=== PATIENT | female | born 1985 | race Two or more races ===

== ENCOUNTER 2024-03-11 07:55 | Day surgery (SDC) | payer MEDICAID, SELFPAY ==
--- NOTE | 2024-03-07 10:49 | ESHP_ITS ---
RE: FERMIN KELSEY : 1985 DATE OF ADMISSION: 03/11/2024 HISTORY OF PRESENT ILLNESS: This is a 38-year-old 8, para 5-0-3-5, who is multiparous and desires voluntary sterilization. She currently has an IUD in place. She also has a history of abnormal uterine bleeding, which is a significant quality of life issue for her. Prior to IUD insertion, she also had abnormal uterine bleeding. It is the expectation when the IUD is removed that this problem will continue. Therefore, the patient is undergoing laparoscopic bilateral salpingectomy and hysteroscopy with removal of IUD and NovaSure endometrial ablation. ALLERGIES: NO KNOWN DRUG ALLERGIES. MEDICATIONS: 1. Wegovy 2.4 mg subcutaneous injection weekly. 2. Mirena IUD currently in place. PAST MEDICAL HISTORY: Migraine headache with aura, mild COVID-19 infection. FAMILY HISTORY: Father and mother have diabetes, hypertension, heart disease, and hypothyroidism. Son with Down syndrome, congenital heart disease. OBSTETRIC HISTORY: Four previous full-term, normal vaginal deliveries and three previous spontaneous abortions. PAST SURGICAL HISTORY: D and C in 2008 and 2018. REVIEW OF SYSTEMS: She denies any chest pain, palpitations, cough, fever, shortness of breath, or lower extremity pain. PHYSICAL EXAMINATION: VITAL SIGNS: Blood pressure is 116/72, heart rate 88, respirations 18, temperature 98.6. HEENT: Oropharynx and sclerae are clear. LUNGS: Clear to auscultation bilaterally. HEART: Regular rate and rhythm. ABDOMEN: Nontender. No scars noted. EXTREMITIES: Nontender. SKIN: No gross rashes or lesions. NEUROLOGIC: No focal deficits. ASSESSMENT AND PLAN: Multiparity, desires voluntary sterilization, abnormal uterine bleeding, desires IUD removal. PLAN: Laparoscopic bilateral salpingectomy, hysteroscopy, removal of IUD, fractional dilatation and curettage, NovaSure endometrial ablation. Informed consent was obtained. The patient is made aware of the risks, complications, alternatives, and benefits of the proposed procedure and she agrees. She is aware of the failure rate and increased risk of tubal ectopic gestation if occurs. She is aware that vasectomy is simpler, easier and safer, but her male partner declines that option. She is aware of the reversible methods of control and she declines those options. She is aware of the risk of injury to bowel or bladder, uterus, ureters, adjacent organs, pulmonary embolism, deep vein thrombosis, injury to the vessels of the abdominal wall, hematoma, abscess, wound infection, wound dehiscence, pelvic infection, reoperation, repair of injury to internal organs, anesthesia complications, the possibility that a laparotomy needs to be performed to complete the procedure or controlled bleeding and the possibility the procedure is not able to be completed due to severe adhesions or technical difficulties. DT: 09:26:14 TT: 10:48:00 Ref: [id number] - TID: [id number] MTDD
[2024-03-10 11:23] VITALS: BMI 25.7
[2024-03-10 12:28] LABS: Basophils # (Auto) 0.1 Thou/mm3 (0.0-0.2); Basophils % (Auto) 1 % (0-2.5); Eosinophils # (Auto) 0.2 Thou/mm3 (0.0-0.5); Eosinophils % (Auto) 4 % (0-10); Hematocrit 39.2 % (36.0-46.0); Hemoglobin 13.2 g/dL (12.0-16.0); Immature Granulocytes % (Auto) 0 % (0-0); Immature Granulocytes Auto 0.01 Thou/mm3 (0.00-0.00); Lymphocytes # (Auto) 2.4 Thou/mm3 (1.0-4.8); Lymphocytes % (Auto) 43 % (10-50); Mean Corpuscular HGB Conc 33.7 g/dl (31.0-37.0); Mean Corpuscular Volume 89 fL (80-100); Monocytes # (Auto) 0.4 Thou/mm3 (0.0-0.8); Monocytes % (Auto) 7 % (0-12); Neutrophils # (Auto) 2.5 Thou/mm3 (1.8-7.7); Neutrophils % (Auto) 46 % (37-80); Nucleated Red Blood Cell % 0 /100 WBC (0); Platelet Count 207 Thou/mm3 (140-440); RDW Standard Deviation 42.5 fL (36.4-46.3); White Blood Count 5.5 Thou/mm3 (3.6-11.0)
[2024-03-10 12:49] LABS: Partial Thromboplastin Time 28.4 Seconds (22.0-36.0); Prothrombin Time 11.4 Seconds (9.0-12.2)
[2024-03-10 13:05] LABS: Alanine Aminotransferase 7 U/L (10-49); Albumin, Serum 4.5 gm/dL (3.5-5.0); Albumin/Globulin Ratio 1.7 (1.2-2.2); Alkaline Phosphatase 28 U/L (46-116); Anion Gap 6 (7-16); Aspartate Amino Transferase < 10 U/L (0-34); BUN/Creatinine Ratio 17 Ratio (12-20); Beta HCG,Quantitative 2 mIU/mL (<5.0); Bilirubin,Total 0.5 mg/dL (0.3-1.2); Blood Urea Nitrogen 10 mg/dL (9-23); Calcium 9.7 mg/dL (8.3-10.6); Calcium (Corrected) 9.7 mg/dL (8.5-10.1); Carbon Dioxide 28.5 mMol/L (20.0-31.0); Chloride 105 mMol/L (98-107); Creatinine (Component) 0.6 mg/dL (0.6-1.3); Estimated Creatinine Clearance 109.5 mL/min (>60); Globulin 2.7 gm/dL (2.3-3.5); Glucose 77 mg/dL (74-106); Osmolality,Calculated 275 (275-295); Potassium 3.4 mMol/L (3.4-5.1); Sodium 139 mMol/L (136-145); Total Protein 7.2 gm/dL (5.7-8.2); eGFR > 60 See Note
[2024-03-11] VITALS (12 sets, daily range): BP systolic 103–121; BP diastolic 64–81; PULSE 56–82; RESP 13–17; TEMP 36.1–36.7; O2SAT 97–100; BMI 26.1
[2024-03-11] MEDS: RINGERS LACTATED 1000 ML 1,000 ML 30 ML IV (08:51)
--- NOTE | 2024-03-11 12:24 | SUR.PHASEII ---
report to Wanda Zhao RN
--- NOTE | 2024-03-11 12:24 | SUR.PHASEII ---
1224 Report received from Wanda Hernandez RN
[2024-03-11] MEDS: KETOROLAC INJ 30 MG/ML VIAL IVP (12:53)
--- NOTE | 2024-03-11 13:32 | SUR.PHASEII ---
1332 Patient meets discharge criteria from recovery, awake and alert, breathing unlabored, vital signs stable, denies pain, dressing intact; no bleeding noted, patient able to dress herself into her clothing, denies nausea, discharge instructions given to patient and patients son, son signed discharge instructions. Patient given all her belongings prior to discharge, transported via wheelchair and left in a private vehicle.
--- NOTE | 2024-03-11 19:44 | ESOP_ITS ---
RE: FERMIN KELSEY : 1985 DATE OF OPERATION: 03/11/2024 PREOPERATIVE DIAGNOSES: 1. Multiparity. 2. Desires voluntary sterilization. 3. Abnormal uterine bleeding. 4. Desires removal of IUD. POSTOPERATIVE DIAGNOSES: 1. Multiparity. 2. Desires voluntary sterilization. 3. Abnormal uterine bleeding. 4. Desires removal of IUD. PROCEDURE PERFORMED: Laparoscopic bilateral salpingectomy, hysteroscopy, IUD removal, fractional dilatation and curettage, and NovaSure endometrial ablation. SURGEON: Albin Tirado DO COST MANAGER: KERRY Almeida ANESTHESIA: General. ANESTHESIOLOGIST: Dr. Souza ESTIMATED BLOOD LOSS: 10 mL. COMPLICATIONS: None. COUNTS: Correct. PATHOLOGY: 1. IUD. 2. Left fallopian tube. 3. Right fallopian tube. 4. Endocervical curettings. 5. Endometrial curettings. FINDINGS: Uterus sounds to 9.0 cm. Cervical length is 3.0 cm. Uterine cavity length is 6.0 cm. Uterine cavity width is 2.6 cm. Power setting is 86 rosario. Duration of ablation 1 minute and 11 seconds. Fluids absorbed hysteroscopically 425 mL of normal saline. Impression is grossly normal-appearing uterus, fallopian tubes, and ovaries. Grossly normal-appearing IUD removed, complete and intact. DESCRIPTION OF PROCEDURE: After proper informed consent was obtained and the patient was made aware of the risks, complications, alternatives, benefits of the proposed procedure, she was taken to the operating room where she underwent induction of general anesthesia. She was placed in the dorsal lithotomy position. She was prepped and draped in the usual sterile fashion. A timeout was performed. The speculum was placed in the vagina. A single-tooth tenaculum was used to grasp the anterior lip of the cervix. The IUD string was grasped with the forceps and removed. The IUD was removed completely and intact and sent to Pathology. The [employer] unit manipulator was placed. Attention was then turned to the abdomen where the physician regowned and gloved and a 5-mm incision was made in the umbilical fold with tenting up of the abdomen. The Veress needle was inserted. Saline confirmed intraabdominal placement. An artificial pneumoperitoneum was created to 12 mmHg. The Veress needle was then removed. The 5-mm trocar was inserted with tenting up of the abdomen. The laparoscope connected to video camera was then utilized to visualize the pelvis. A second incision was made in the midline 2 cm above the symphysis pubis. Through this 5-mm incision, a 5 mm trocar was inserted under direct visualization of the laparoscope. Attention was then turned to the left lower quadrant. Through this left lower quadrant incision, a 5-mm trocar was inserted under direct visualization of the laparoscope and using the [employer] grasper, the right fallopian tube was grasped in the fimbriated end and using the [employer] Harmonic scalpel 1136 griselda, the right salpingectomy was performed. Hemostasis was achieved. Specimen sent to Pathology. Attention was then turned to the left fallopian tube, which was grasped with a fimbriated end. A left salpingectomy was performed using the 1136 Harmonic scalpel. Hemostasis was achieved. Specimen sent to Pathology. Carbon dioxide was removed from the peritoneal cavity. The incisions were infiltrated with Marcaine 0.5% with epinephrine and closed with 4-0 Monocryl and covered with Dermabond. Attention was then turned to the vagina where the acorn uterus manipulator was then removed. The uterus sounded to 9.0 cm. The cervical length measured 3.0 cm. The Omni hysteroscope was then utilized to visualize the endocervix and uterine cavity and through the 5.5 mm hysteroscope, the above findings were noted. The endocervix was curetted and specimen sent to Pathology. The uterine cavity was curetted and specimen sent to Pathology. Using the MyoSure reach, the uterine cavity was sampled in all four quadrants and specimen sent to Pathology. Using the NovaSure catheter, the NovaSure endometrial ablation was performed for a total of 1 minute and 11 seconds at 86 rosario and when the catheter was removed from the uterine cavity and redeployed, it was found to be complete and intact. There was no bleeding from the endocervix at the end of the procedure. All instruments were removed from the vagina. She was reversed from general anesthesia in the supine position and transferred to the recovery room in stable condition. She tolerated the procedure well. Counts were correct. I discussed with the patient's family the nature of her condition, intraoperative findings and expectations for recovery. All questions answered. DT: 12:05:11 TT: 19:41:00 Ref: [id number] - TID: [id number]
== END 2024-03-11 13:32 | disposition home or self-care (01) ==
PROVIDERS: PCP Nurse Practitioner Family; Referring Provider Specialist; Visit Provider Specialist
PROC: (CPT 58670; principal; 2024-03-11 10:00)
PROC: 0U5B8ZZ Destruction of Endometrium, Via Natural or Artificial Opening Endoscopic (ICD-10-PCS; CPT 58563; 2024-03-11 10:00)
PROC: (CPT 58301; 2024-03-11 10:00)
DX: Z30.2 Encounter for sterilization (principal); Z64.1 Problems related to multiparity; Z82.49 Family history of ischemic heart disease and other diseases of the circulatory system; Z83.3 Family history of diabetes mellitus; Z83.49 Family history of other endocrine, nutritional and metabolic diseases; Z86.16 Personal history of COVID-19
CPT/HCPCS: 58301; 58563; 58661; 36415; 80053; 84702; 85025; 85610; 85730; 86850; 86900; 86901; A4217; A4649; J0131; J0690; J1100; J1885; J2405; J2704; J3010; J3490; J7120

== ENCOUNTER 2024-06-09 13:44 | Outpatient (AMB) | payer MEDICAID, SELFPAY ==
[2024-06-09 13:58] VITALS: BP 89/60; PULSE 73; RESP 18; TEMP 36.9; O2SAT 97; BMI 24.3
--- NOTE | 2024-06-09 13:58 | GSCOFFNT_ITS ---
Vital Signs - [facility] 06/09/24 13:58 Height 1.57 m Height Method Stated Weight 60.384 kg Weight Measurement Method Standing Scale BMI 24.3 BP 89/60 L Blood Pressure Source Automatic Cuff Blood Pressure Location Left Upper Arm Position Sitting Respiration 18 Pulse 73 Pulse Source Monitor Temp 98.4 F Temp Source Temporal Artery Scan Pulse Oximetry (%) 97 Oxygen Delivery Method Room Air Med/Allergies Allergies & Medications Allergies No Known Allergies Allergy (Verified 06/09/24 13:59) Medication Reconciliation semaglutide (weight loss) 2.4 mg/0.75 mL subcutaneous pen injector (Wegovy) 2.4 mg subcut QWEEK 03/10/24 [History Confirmed 06/09/24] tenapanor 50 mg tablet (Ibsrela) 50 mg PO DAILY 03/10/24 [History Confirmed 06/09/24] MA Intake Visit Data Collection New Patient or Established: Established Patient (seen at [facility] within 3 years) Seen by Clinical Staff ONLY (RN/MA): No Reason for Visit:: REFERRAL HEMORRHOIDS Pain Present Currently: No PCP or OBGYN visit in last 3 months: Yes Hx Now: No Do You Feel Safe at Home: Yes Authorities Contacted: N/A Smoking Status Smoking Status: Never smoker Immunization / Flu Flu Vaccine in the Last 12 Months: No Flu Vaccine Exclusion Criteria: Refused by Patient Past Medical History Past Medical History NEUROLOGIC: Negative Neurological Disorders, Seizures or Migraine CARDIAC: Negative Cardiac Disorders or Congestive Heart Failure RESPIRATORY: Negative Chronic Obstructive Pulmonary Disease (COPD) GASTROINTESTINAL: Negative Gastrointestinal Disorders GENITOURINARY: Negative Genitourinary Disorders or Renal Disease REPRODUCTIVE: Positive Previous Pregnancies ENDOCRINE: Negative Endocrine Disorders, Diabetes Mellitus Type 1, Diabetes Mellitus Type 2, Hypoglycemia, Hyperthyroidism, Hypothyroidism, Parathyroid Disease, Pituitary Disease or Syndrome of Inappropriate Antidiuretic Hormone (SIADH) HEMATOLOGIC: Negative Blood Disorders OTHER HISTORY: Positive Hospitalization (surgery); Negative Autoimmune Disease, Shingles, Blood Transfusions, Blood Transfusion Reaction, Anesthesia Reactions, Organ Transplant, Chicken Pox, Clostridium Difficile or Cancer Family History FAMILY HISTORY: Positive Family Cardiac Disorders (Father side - unknown heart disease runs in the family), Family Cancer and Family Surgery; Negative Family Psychiatric Problems, Family Respiratory Disorders, Family Gastrointestinal Problems or Family Anesthesia Reaction Surgical History SURGICAL: Negative Thyroidectomy or Organ Transplant Social History SMOKING STATUS: Smoking status: Never smoker ALCOHOL: Alcohol Intake: Never HOUSING: Housing: House LIVES WITH: Lives With: Children and Spouse HPI HPI Narrative 38 year old female presenting for evaluation of hemorrhoid. She states that she first noticed it approximately 2 months ago. She reports symptoms of irritation and itching associated with the hemorrhoid. Denies pain with bowel movement. She reports bright red blood when wiping with toilet paper. She notes that the hemorrhoid prolapses with bowel movements and straining associated with bowel movements, but resolves spontaneously within a few days. She states that she has been dealing with constipation for as long as she can remember. She previously would have bowel movements every 1-1.5 months but has recently noticed improvement with bowel movements occurring approximately every 2 weeks since starting Ibsrela and Lactulose. She had a colonoscopy approximately 2 years ago but was told that there were no abnormal findings. PMH: IBS-Constipation PSH: Cholecystectomy Meds: Ibsrela, Wegovy, Lactulose, Minoxidil, Spironolactone Allergies: NKDA SHx: Denies smoking FHx: Denies history of cancer in parents, siblings, or children. Reports cancer in extended family members such as uncle and nephew but is unsure what kind of cancer ROS Review of Systems Systems Reviewed: All systems reviewed, normal except as documented Objective/Exam General General Appearance: alert, in no apparent distress, comfortable, cooperative and healthy appearing Resp Respiratory exam: Absent respiratory distress Assessment & Plan Diagnosis / Problem List (1) Internal hemorrhoid: Status: Acute Assessment & Plan: 38 year old female presenting for evaluation of internal hemorrhoid associated with irritation, pruritus, and bright red blood when wiping. She has a history of IBS-C being treated with Ibsrela and Lactulose. She has also been given hydrocortisone suppositories. Discussed importance of adequate hydration and fiber supplementation. I explained that because she is still dealing with constipation I would not recommend surgery at this time. Recommended sitz bath. Patient understand and agrees with plan to increase hydration and begin fiber supplementation. Patient to return to clinic in 6 weeks for follow up. Office Procedures GNS Level of Care Nursing/Assessment Patient Status: Established Patient Nursing Assessment/Reassesment: Medication Reconciliation, Update PMH in EMR and Vital Signs Coordination of Care: Complex Care and Chronic Disease 1-5, Consent,records obtained, informed consent, Education Simp Pt/Fam, Results/Orders obtained and Staff clarify orders Established Patient Charge Established Patient Point Assignment: 90 Established Patient Point Charge: Level 3 (80-115) Patient Portal Questionaires Social History Living Situation History Housing: House Tobacco History Smoking Status: Never smoker Alcohol History Alcohol Intake: Never Domestic Abuse History Do You Feel Safe at Home: Yes Review of Systems Report any current symptoms Only answer those that you have currently: Past Medical History Past Medical History Have you ever been diagnosed with any of the following: Neurological Problems Seizures: No Migraine: No Cardiology Problems Congestive Heart Failure: No Respiratory Problems Chronic Obstructive Pulmonary Disease (COPD): No Genital/Urinary Problems Renal Disease: No Reproductive Problems Previous Pregnancies: Yes Endocrine Problems Diabetes Mellitus Type 1: No Diabetes Mellitus Type 2: No Hypoglycemia: No Hyperthyroidism: No Hypothyroidism: No Parathyroid Disease: No Pituitary Disease: No Syndrome of Inappropriate Antidiuretic Hormone: No Other Problems Hospitalization: Yes (surgery) Autoimmune Disease: No Shingles: No Blood Transfusions: No Blood Transfusion Reaction: No Anesthesia Reactions: No Organ Transplant: No Chicken Pox: No Clostridium Difficile: No Cancer: No Surgical History Thyroidectomy: No
== END 2024-06-09 14:46 | disposition home or self-care (01) ==
LOC: HODSRG 13:44
PROVIDERS: PCP Nurse Practitioner Family; Referring Provider Nurse Practitioner Family; Supervising Provider Surgery; Visit Provider Surgery
DX: K64.8 Other hemorrhoids (principal)
CPT/HCPCS: 99213; G0463

== ENCOUNTER 2024-10-08 17:34 | Emergency (ER) | payer MEDICAID, SELFPAY ==
[2024-10-08 18:09] VITALS: BP 104/62; PULSE 75; RESP 16; TEMP 36.8; O2SAT 98; BMI 23.8
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
--- NOTE | 2024-10-08 18:32 | EKG_ITS ---
[facility] Test Date: 2024-10-08 Pat Name: FERMIN KELSEY Department: Room: - Gender: Female Solo Musician: : 1985 Requested By: Ronen Lal Order Number: [id number] Kaushal MD: Ronen Lal Measurements Intervals [place] Rate: 65 P: 52 TN: 249 QRS: -17 QRSD: 106 T: 41 QT: 406 QTc: 423 Interpretive Statements SINUS RHYTHM WITH FIRST DEGREE AV BLOCK MODERATE INTRAVENTRICULAR CONDUCTION DELAY [105+ ms QRS DURATION, 80+ ms Q/S IN V1/V2, NO Q AND 60+ ms R IN I/aVL/V5/V6] No previous ECG available for comparison /store/S0/[id number].pdf
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
[2024-10-08 18:59] LABS: Basophils # (Auto) 0.1 Thou/mm3 (0.0-0.2); Basophils % (Auto) 1 % (0-2.5); Eosinophils # (Auto) 0.3 Thou/mm3 (0.0-0.5); Eosinophils % (Auto) 4 % (0-10); Hematocrit 38.3 % (36.0-46.0); Hemoglobin 13.1 g/dL (12.0-16.0); Immature Granulocytes Auto 0.02 Thou/mm3 (0.00-0.00); Lymphocytes # (Auto) 3.1 Thou/mm3 (1.0-4.8); Lymphocytes % (Auto) 36 % (10-50); Mean Corpuscular HGB Conc 34.2 g/dl (31.0-37.0); Mean Corpuscular Hemoglobin 30.8 pg (25.0-35.0); Mean Corpuscular Volume 90 fL (80-100); Monocytes # (Auto) 0.7 Thou/mm3 (0.0-0.8); Monocytes % (Auto) 8 % (0-12); Neutrophils # (Auto) 4.3 Thou/mm3 (1.8-7.7); Neutrophils % (Auto) 51 % (37-80); Nucleated Red Blood Cell # 0.00 Thou/mm3 (0.00-0.00); Nucleated Red Blood Cell % 0 /100 WBC (0); Platelet Count 254 Thou/mm3 (140-440); RDW Standard Deviation 42.7 fL (36.4-46.3); Red Blood Count 4.25 Miln/mm3 (4.00-5.20); White Blood Count 8.5 Thou/mm3 (3.6-11.0)
[2024-10-08 19:10] LABS: Alanine Aminotransferase 8 U/L (10-49); Albumin, Serum 4.3 gm/dL (3.5-5.0); Albumin/Globulin Ratio 1.5 (1.2-2.2); Alkaline Phosphatase 47 U/L (46-116); Anion Gap 8 (7-16); Aspartate Amino Transferase 15 U/L (0-34); BUN/Creatinine Ratio 15 Ratio (12-20); Bilirubin,Total 0.3 mg/dL (0.3-1.2); Blood Urea Nitrogen 9 mg/dL (9-23); Calcium 9.5 mg/dL (8.3-10.6); Calcium (Corrected) 9.5 mg/dL (8.5-10.1); Carbon Dioxide 29.4 mMol/L (20.0-31.0); Chloride 102 mMol/L (98-107); Creatinine (Component) 0.6 mg/dL (0.6-1.3); Estimated Creatinine Clearance 97.6 mL/min (>60); Globulin 2.9 gm/dL (2.3-3.5); Glucose 86 mg/dL (74-106); Osmolality,Calculated 275 (275-295); Potassium 3.8 mMol/L (3.4-5.1); Sodium 139 mMol/L (136-145); Total Protein 7.2 gm/dL (5.7-8.2); Troponin I < 0.002 ng/mL (0.0-0.045); eGFR > 60 See Note
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
[2024-10-08 21:28] VITALS: BP 111/66; PULSE 71; RESP 19; TEMP 36.6; O2SAT 97
== END 2024-10-08 21:54 | disposition home or self-care (01) ==
PROVIDERS: Physician Assistant; Emergency Provider Emergency Medicine; PCP Registered Nurse Community Health
DX: R51.9 Headache, unspecified (principal); R07.89 Other chest pain; I44.0 Atrioventricular block, first degree; V89.9XXA Person injured in unspecified vehicle accident, initial encounter
CPT/HCPCS: 36415; 70450; 71045; 80053; 84484; 85025; 93005; 99283